=== PATIENT | female | born 1970 | race Caucasian/White ===

== ENCOUNTER 2017-04-02 16:30 | Emergency (ER) | payer OTHER ==
[~2017-04-02] VITALS: Ht 121.9 cm; Wt 100.0 kg
[~2017-04-02 16:30] MED LIST: FLUT1SPR5 EACH NARE; GABA300C5 PO
[2017-04-02 16:32] VITALS: BP 144/80; PULSE 90; RESP 14; TEMP 98.2; O2SAT 100
[2017-04-02] MEDS ORDERED: SODIUM CHLOR 0.9% 1000 ML INJ 1,000 ML IV SCH (18:59)
[2017-04-02] MEDS ORDERED: SODIUM CHLORIDE 0.9% FLUSH 10 ML FLUSH IV FLUSH PRN (19:00)
--- NOTE | 2017-04-02 19:02 | PD ---
HPI Chief Complaint: GI Complaint Time Seen by Provider: 18:21 Travel History International Travel<30 days: No Contact w/Intl Traveler<30days: No Traveled to known affect area: No History of Present Illness HPI 47-year-old female presents to emergency Department with complaint of hematuria since 2014, blood in her stool on and off for the past 5 months, and bloody emesis times one week. Says she threw up one week ago once, one time this weekend, and one time this morning. Reports blood in her stool started again about a week ago. Denies lightheadedness or dizziness. Reports fever one week ago. Reports feeling exhausted. Reports right lower quadrant abdominal pain that has been on and off since 2014 with constant pain past 5 months. Denies dysuria. Reports urinary hesitancy. Denies anticoagulant therapy. Denies chest pain or shortness of breath. Says abdominal pain is worse after eating and before bowel movement. Abdominal pain decreases after bowel movement. Rates the pain 10/10. Has not taken any medications or tried any treatments to alleviate her symptoms. No known relieving factors. History of a heart murmur and depression. Allergies to Depakote. The urologist in regards to these complaints and was told she has a blood clot hanging from her bladder. Has also seen data technician and was told that she has the "healthiest vagina he's ever seen." Has seen GI and they wanted to do a colonoscopy and an endoscopy and since the patient couldn't pay for the endoscopy they said they would not do the colonoscopy. History of total hysterectomy and cholecystectomy. Her primary care providers Lena james. She has no other medical complaints. No other modifying factors or associated signs and symptoms. PFSH Past Medical History Blood Disorders: No Bipolar Disorder: Yes Anxiety: Yes Depression: Yes Heart Rhythm Problems: Yes (heart murmur) Cancer: Yes (cervical) Cardiac Catheterization: No Cardiovascular Problems: Yes (murmur ) High Cholesterol: Yes Chemotherapy: No Congestive Heart Failure: No Diabetes: No Diminished Hearing: No Endocrine: No Genitourinary: No Hepatitis: No Hiatal Hernia: No Immune Disorder: No Musculoskeletal: Yes ( degenerative disc disease l4-5) Neurologic: Yes (anxiety, stress, seizures nothing in 5 years) Psychiatric: Yes (bi-polar) Reproductive: Yes Respiratory: No Immunizations Current: Yes Radiation Therapy: No Seizures: Yes (NO SEIZURE IN 5 YRS. ) Thyroid Disease: No Tetanus Vaccination: < 5 Years Influenza Vaccination: Yes ?: Not Menopausal: Yes : 3 Para: 3 Miscarriage: 0 : 0 Ovarian Cysts: Yes Tubal Ligation: Yes (1993) Past Surgical History Abdominal Surgery: Yes (lap ortiz) AICD: No Arteriovenous Shunt: No Cardiac Surgery: No Cholecystectomy: Yes Coronary Artery Bypass Graft: No Ear Surgery: No Endocrine Surgery: No Eye Surgery: No Genitourinary Surgery: No Gynecologic Surgery: Yes (cone bx x2 tubal) Hysterectomy: Yes Insulin Pump: No Joint Replacement: No Neurologic Surgery: No Oral Surgery: No Pacemaker: No Thoracic Surgery: No Other Surgery: Yes (CONIZATIONS 1990 1995) Social History Alcohol Use: No Tobacco Use: No Substance Use: No Allergies-Medications (Allergen,Severity, Reaction): Coded Allergies: divalproex sodium (Verified Allergy, Intermediate, rash, 04/02/17) Reported Meds & Prescriptions Reported Meds & Active Scripts Active No Active Prescriptions or Reported Medications Review of Systems Except as stated in HPI: all other systems reviewed are Neg Physical Exam Narrative GENERAL: Well-nourished, well-developed female patient, in no acute distress; afebrile, nontoxic-appearing SKIN: Warm and dry. HEAD: Atraumatic. Normocephalic. EYES: Pupils equal and round. No scleral icterus. No injection or drainage. ENT: Mucosa pink and moist. Airway patent. NECK: Trachea midline. CARDIOVASCULAR: Regular rate and rhythm. No murmur appreciated. RESPIRATORY: No accessory muscle use. Clear to auscultation. Breath sounds equal bilaterally. GASTROINTESTINAL: Abdomen soft, right lower quadrant abdominal tenderness, nondistended. Hepatic and splenic margins not palpable. Bowel sounds are active 4 quadrants. No guarding. Nonrigid. RECTAL EXAM: Exam done in the presence of a nurse. No masses or tenderness, stool is brown. Hemaprompt negative. No visualized external hemorrhoids. MUSCULOSKELETAL: No obvious deformities. No clubbing. No cyanosis. No edema. NEUROLOGICAL: Awake and alert. Oriented 3. No obvious cranial nerve deficits. Motor grossly within normal limits. Normal speech. PSYCHIATRIC: Appropriate mood and affect; insight and judgment normal. Data Data Last Documented VS Vital Signs Date Time Temp Pulse Resp B/P (MAP) Pulse Ox O2 Delivery O2 Flow Rate FiO2 04/02/17 18:01 16 11/30/17 16:32 98.2 90 144/80 (101) 100 Orders Orders Complete Blood Count With Diff (04/02/17 18:59) Comprehensive Metabolic Panel (04/02/17 18:59) Lipase (04/02/17 18:59) Prothrombin Time / Inr (Pt) (04/02/17 18:59) Act Partial Throm Time (Ptt) (04/02/17 18:59) Urinalysis - C+S If Indicated (04/02/17 18:59) Ct Abd/Pel W/O Iv Contrast (04/02/17 18:59) Iv Access Insert/Monitor (04/02/17 18:59) Ecg Monitoring (04/02/17 18:59) Oximetry (04/02/17 18:59) Sodium Chlor 0.9% 1000 Ml Inj (Ns 1000 M (04/02/17 18:59) Sodium Chloride 0.9% Flush (Ns Flush) (04/02/17 19:00) Ketorolac Inj (Toradol Inj) (04/02/17 19:15) Ondansetron Inj (Zofran Inj) (04/02/17 19:15) Labs Laboratory Tests Test 04/02/17 19:30 04/02/17 19:40 Urine Color YELLOW Urine Turbidity HAZY Urine pH 5.0 Urine Specific [place] 1.018 Urine Protein NEG mg/dL Urine Glucose (UA) NEG mg/dL Urine Ketones NEG mg/dL Urine Occult Blood NEG Urine Nitrite NEG Urine Bilirubin NEG Urine Urobilinogen LESS THAN 2.0 MG/DL Urine Leukocyte Esterase NEG Urine RBC 1 /hpf Urine WBC 1 /hpf Urine Squamous Epithelial Cells 5 /hpf Urine Uric Acid Crystals OCC /hpf Urine Bacteria RARE /hpf Urine Mucus FEW /lpf Microscopic Urinalysis Comment CULT NOT INDICATED White Blood Count 8.8 TH/MM3 Red Blood Count 4.74 MIL/MM3 Hemoglobin 13.8 GM/DL Hematocrit 42.0 % Mean Corpuscular Volume 88.6 FL Mean Corpuscular Hemoglobin 29.1 PG Mean Corpuscular Hemoglobin Concent 32.8 % Red Cell Distribution Width 13.7 % Platelet Count 232 TH/MM3 Mean Platelet Volume 8.3 FL Neutrophils (%) (Auto) 51.8 % Lymphocytes (%) (Auto) 37.2 % Monocytes (%) (Auto) 9.7 % Eosinophils (%) (Auto) 0.8 % Basophils (%) (Auto) 0.5 % Neutrophils # (Auto) 4.6 TH/MM3 Lymphocytes # (Auto) 3.3 TH/MM3 Monocytes # (Auto) 0.9 TH/MM3 Eosinophils # (Auto) 0.1 TH/MM3 Basophils # (Auto) 0.0 TH/MM3 CBC Comment DIFF FINAL Differential Comment Prothrombin Time 10.0 SEC Prothromb Time International Ratio 1.0 RATIO Activated Partial Thromboplast Time 25.3 SEC Blood Urea Nitrogen 12 MG/DL Creatinine 0.80 MG/DL Random Glucose 87 MG/DL Total Protein 7.4 GM/DL Albumin 3.8 GM/DL Calcium Level 8.7 MG/DL Alkaline Phosphatase 71 U/L Aspartate Amino Transf (AST/SGOT) 24 U/L Alanine Aminotransferase (ALT/SGPT) 37 U/L Total Bilirubin 0.3 MG/DL Sodium Level 140 MEQ/L Potassium Level 3.6 MEQ/L Chloride Level 107 MEQ/L Carbon Dioxide Level 26.2 MEQ/L Anion Gap 7 MEQ/L Estimat Glomerular Filtration Rate 78 ML/MIN Lipase 114 U/L [facility] Medical Decision Making Medical Screen Exam Complete: Yes Emergency Medical Condition: Yes Medical Record Reviewed: Yes Differential Diagnosis Peptic ulcer disease, GI bleed, urinary tract infection, gastritis, appendicitis , kidney stones Narrative Course 47-year-old female with ongoing complaint of abdominal pain, hematuria, blood in stool, and bloody emesis. Patient is afebrile and nontoxic-appearing. Hemaprompt negative. Patient's urine on the counter in the room is clear yellow without hematuria noted. CBC, CMP, lipase, urinalysis, CT abdomen/pelvis , normal saline bolus, Toradol, Zofran ordered. 2015: CBC unremarkable. 2052: CMP unremarkable. lipase 114. Coags unremarkable. Urinalysis without signs of infection. CT abdomen/pelvis pending. 2100: Dr. Ovalles assumed patient care at this time. See her note for final patient disposition. Scripts No Active Prescriptions or Reported Meds Carolyn Fatima Apr 02, 2017 19:02
[2017-04-02] MEDS ORDERED: KETOROLAC TROMETHAMINE 30 MG/ML (IVP) VIAL IV PUSH ONE (19:15)
[2017-04-02] MEDS ORDERED: ONDANSETRON HCL 4 MG/2 ML VIAL IV PUSH ONE (19:15)
[2017-04-02 20:16] LABS: AUTOMATED NEUTROPHIL # 4.6 TH/MM3 (1.8-7.7); BASOPHIL % 0.5 % (0.0-2.0); EOSINOPHIL # 0.1 TH/MM3 (0-0.4); EOSINOPHIL % 0.8 % (0.0-4.0); HEMO FLAGS DIFF FINAL; LYMPH % 37.2 % (9.0-44.0); LYMPHOCYTE # 3.3 TH/MM3 (1.0-4.8); MEAN CELL VOLUME 88.6 FL (80.0-100.0); MEAN CORPUSCULAR HEMOGLOBIN 29.1 PG (27.0-34.0); MEAN CORPUSCULAR HGB CONC 32.8 % (32.0-36.0); MONO % 9.7 % (0.0-8.0); NEUT % 51.8 % (16.0-70.0); PLATELET COUNT 232 TH/MM3 (150-450); RED BLOOD COUNT 4.74 MIL/MM3 (4.00-5.30); RED CELL DISTRIBUTION WIDTH 13.7 % (11.6-17.2); WHITE BLOOD COUNT 8.8 TH/MM3 (4.0-11.0)
[2017-04-02 20:27] LABS: APTT (PATIENT) 25.3 SEC (24.3-30.1)
[2017-04-02 20:38] LABS: BACTERIA, URINE RARE /hpf; BLOOD, URINE NEG (NEG); COMMENT (UR) CULT NOT INDICATED; CULTURE IF INDICATED CULT NOT INDICATED; GLUCOSE,URINE NEG (NEG); KETONE, URINE NEG (NEG); MUCUS URINE FEW /lpf (OCC); NITRITE,URINE NEG (NEG); SQUAMOUS EPITHELIAL CELL URINE 5 /hpf (0-5); URIC ACID CRYSTALS, URINE OCC /hpf; URINE COLOR YELLOW (YELLW/STRAW)
[2017-04-02 20:47] LABS: ANION GAP 7 MEQ/L (5-15); AST (GOT) 24 U/L (15-37); BICARBONATE 26.2 MEQ/L (21.0-32.0); BLOOD UREA NITROGEN 12 MG/DL (7-18); CHLORIDE 107 MEQ/L (98-107); GLOMERULAR FILTRATION RATE 78 ML/MIN (>89); POTASSIUM 3.6 MEQ/L (3.5-5.1); SODIUM (NA) 140 MEQ/L (136-145)
[2017-04-02 20:48] LABS: ALT (GPT) 37 U/L (10-53)
[2017-04-02 20:50] LABS: ALKALINE PHOSPHATASE 71 U/L (45-117); TOTAL BILIRUBIN ADULT 0.3 MG/DL (0.2-1.0)
--- NOTE | 2017-04-02 21:36 | RADRPT ---
EXAM DATE/TIME: 04/02/2017 20:11 [facility] COMPARISON: CT ABDOMEN & PELVIS W CONTRAST, February 16, 2014, 18:38. INDICATIONS : Abdominal pain for 2 years. ORAL CONTRAST: No oral contrast ingested. RADIATION DOSE: 18.99 CTDIvol (mGy) MEDICAL HISTORY : Cervical cancer. Ovarian cysts. SURGICAL HISTORY : Cholecystectomy. Hysterectomy. ENCOUNTER: Initial ACUITY: >1 yr PAIN SCALE: 10/10 LOCATION: Abdomen. TECHNIQUE: Volumetric scanning of the abdomen and pelvis was performed. Using automated exposure control and ad justment of the mA and/or kV according to patient size, radiation dose was kept as low as reasonably achievable to obtain optimal diagnostic quality images. DICOM format image data is available electro nically for review and comparison. FINDINGS: LOWER LUNGS: The visualized lower lungs are clear. LIVER: Homogeneous density without lesion. There is no dilation of the biliary tree. The patient is status post cholecystectomy. SPLEEN: Normal size without lesion. PANCREAS: Within normal limits. KIDNEYS: Normal in size and shape. There is no mass, stone, or hydronephrosis. ADRENAL GLANDS: Within normal limits. VASCULAR: There is no aortic aneurysm. BOWEL/MESENTERY: The stomach, small bowel, and colon demonstrate no acute abnormality. There is no free intraperitone al air or fluid. ABDOMINAL WALL: Within normal limits. RETROPERITONEUM: There is no lymphadenopathy. BLADDER: No wall thickening or mass. REPRODUCTIVE: There is a 2.7 cm low density mass at the left adnexa likely related to a left ovarian cystic process . The patient is status post hysterectomy. INGUINAL: There is no lymphadenopathy or hernia. MUSCULOSKELETAL: There is degenerative change of the lower lumbar spine. CONCLUSION: 1. No acute abnormality is seen. 2. 2.7 cm low-density mass the left adnexa likely related to a left ovarian cystic process. The patie nt's left ovary appeared more prominent on the prior exam. Donnie Arroyo MD on April 02, 2017 at 21:30 Board Certified Radiologist. This report was verified electronically.
--- NOTE | 2017-04-02 23:12 | PD ---
Physical Exam Date Seen by Provider: Apr 02, 2017 Data Data Last Documented VS Vital Signs Date Time Temp Pulse Resp B/P (MAP) Pulse Ox O2 Delivery O2 Flow Rate FiO2 04/02/17 18:01 16 04/02/17 16:32 98.2 90 144/80 (101) 100 Orders Orders Complete Blood Count With Diff (04/02/17 18:59) Comprehensive Metabolic Panel (04/02/17 18:59) Lipase (04/02/17 18:59) Prothrombin Time / Inr (Pt) (04/02/17 18:59) Act Partial Throm Time (Ptt) (04/02/17 18:59) Urinalysis - C+S If Indicated (04/02/17 18:59) Ct Abd/Pel W/O Iv Contrast (04/02/17 18:59) Iv Access Insert/Monitor (04/02/17 18:59) Ecg Monitoring (04/02/17 18:59) Oximetry (04/02/17 18:59) Sodium Chlor 0.9% 1000 Ml Inj (Ns 1000 M (04/02/17 18:59) Sodium Chloride 0.9% Flush (Ns Flush) (04/02/17 19:00) Ketorolac Inj (Toradol Inj) (04/02/17 19:15) Ondansetron Inj (Zofran Inj) (04/02/17 19:15) Labs Laboratory Tests Test 04/02/17 19:30 04/02/17 19:40 Urine Color YELLOW Urine Turbidity HAZY Urine pH 5.0 Urine Specific [place] 1.018 Urine Protein NEG mg/dL Urine Glucose (UA) NEG mg/dL Urine Ketones NEG mg/dL Urine Occult Blood NEG Urine Nitrite NEG Urine Bilirubin NEG Urine Urobilinogen LESS THAN 2.0 MG/DL Urine Leukocyte Esterase NEG Urine RBC 1 /hpf Urine WBC 1 /hpf Urine Squamous Epithelial Cells 5 /hpf Urine Uric Acid Crystals OCC /hpf Urine Bacteria RARE /hpf Urine Mucus FEW /lpf Microscopic Urinalysis Comment CULT NOT INDICATED White Blood Count 8.8 TH/MM3 Red Blood Count 4.74 MIL/MM3 Hemoglobin 13.8 GM/DL Hematocrit 42.0 % Mean Corpuscular Volume 88.6 FL Mean Corpuscular Hemoglobin 29.1 PG Mean Corpuscular Hemoglobin Concent 32.8 % Red Cell Distribution Width 13.7 % Platelet Count 232 TH/MM3 Mean Platelet Volume 8.3 FL Neutrophils (%) (Auto) 51.8 % Lymphocytes (%) (Auto) 37.2 % Monocytes (%) (Auto) 9.7 % Eosinophils (%) (Auto) 0.8 % Basophils (%) (Auto) 0.5 % Neutrophils # (Auto) 4.6 TH/MM3 Lymphocytes # (Auto) 3.3 TH/MM3 Monocytes # (Auto) 0.9 TH/MM3 Eosinophils # (Auto) 0.1 TH/MM3 Basophils # (Auto) 0.0 TH/MM3 CBC Comment DIFF FINAL Differential Comment Prothrombin Time 10.0 SEC Prothromb Time International Ratio 1.0 RATIO Activated Partial Thromboplast Time 25.3 SEC Blood Urea Nitrogen 12 MG/DL Creatinine 0.80 MG/DL Random Glucose 87 MG/DL Total Protein 7.4 GM/DL Albumin 3.8 GM/DL Calcium Level 8.7 MG/DL Alkaline Phosphatase 71 U/L Aspartate Amino Transf (AST/SGOT) 24 U/L Alanine Aminotransferase (ALT/SGPT) 37 U/L Total Bilirubin 0.3 MG/DL Sodium Level 140 MEQ/L Potassium Level 3.6 MEQ/L Chloride Level 107 MEQ/L Carbon Dioxide Level 26.2 MEQ/L Anion Gap 7 MEQ/L Estimat Glomerular Filtration Rate 78 ML/MIN Lipase 114 U/L MDM Medical Record Reviewed: Yes Supervised Visit with MEHUL: Yes Narrative Course I, Dr. Ovalles, have reviewed the advance practice practitioner's documentation and am in agreement, met with the patient face to face, made the diagnosis, and the medical decision making was done by me. *My assessment and Findings: Laboratory Tests Test 04/02/17 19:30 04/02/17 19:40 Urine Color YELLOW (YELLW/STRAW) Urine Turbidity HAZY (CLEAR) Urine pH 5.0 (5.0-8.5) Urine Specific [place] 1.018 (1.002-1.035) Urine Protein NEG mg/dL (NEG-TRACE) Urine Glucose (UA) NEG mg/dL (NEG) Urine Ketones NEG mg/dL (NEG) Urine Occult Blood NEG (NEG) Urine Nitrite NEG (NEG) Urine Bilirubin NEG (NEG) Urine Urobilinogen LESS THAN 2.0 MG/DL (LESS Urine Leukocyte Esterase NEG (NEG) Urine RBC 1 /hpf (0-3) Urine WBC 1 /hpf (0-5) Urine Squamous Epithelial Cells 5 /hpf (0-5) Urine Uric Acid Crystals OCC /hpf (NONE) Urine Bacteria RARE /hpf (NONE) Urine Mucus FEW /lpf (OCC) Microscopic Urinalysis Comment CULT NOT INDICATED White Blood Count 8.8 TH/MM3 (4.0-11.0) Red Blood Count 4.74 MIL/MM3 (4.00-5.30) Hemoglobin 13.8 GM/DL (11.6-15.3) Hematocrit 42.0 % (35.0-46.0) Mean Corpuscular Volume 88.6 FL (80.0-100.0) Mean Corpuscular Hemoglobin 29.1 PG (27.0-34.0) Mean Corpuscular Hemoglobin Concent 32.8 % (32.0-36.0) Red Cell Distribution Width 13.7 % (11.6-17.2) Platelet Count 232 TH/MM3 (150-450) Mean Platelet Volume 8.3 FL (7.0-11.0) Neutrophils (%) (Auto) 51.8 % (16.0-70.0) Lymphocytes (%) (Auto) 37.2 % (9.0-44.0) Monocytes (%) (Auto) 9.7 % (0.0-8.0) Eosinophils (%) (Auto) 0.8 % (0.0-4.0) Basophils (%) (Auto) 0.5 % (0.0-2.0) Neutrophils # (Auto) 4.6 TH/MM3 (1.8-7.7) Lymphocytes # (Auto) 3.3 TH/MM3 (1.0-4.8) Monocytes # (Auto) 0.9 TH/MM3 (0-0.9) Eosinophils # (Auto) 0.1 TH/MM3 (0-0.4) Basophils # (Auto) 0.0 TH/MM3 (0-0.2) CBC Comment DIFF FINAL Differential Comment Prothrombin Time 10.0 SEC (9.8-11.6) Prothromb Time International Ratio 1.0 RATIO Activated Partial Thromboplast Time 25.3 SEC (24.3-30.1) Blood Urea Nitrogen 12 MG/DL (7-18) Creatinine 0.80 MG/DL (0.50-1.00) Random Glucose 87 MG/DL (74-106) Total Protein 7.4 GM/DL (6.4-8.2) Albumin 3.8 GM/DL (3.4-5.0) Calcium Level 8.7 MG/DL (8.5-10.1) Alkaline Phosphatase 71 U/L (45-117) Aspartate Amino Transf (AST/SGOT) 24 U/L (15-37) Alanine Aminotransferase (ALT/SGPT) 37 U/L (10-53) Total Bilirubin 0.3 MG/DL (0.2-1.0) Sodium Level 140 MEQ/L (136-145) Potassium Level 3.6 MEQ/L (3.5-5.1) Chloride Level 107 MEQ/L (98-107) Carbon Dioxide Level 26.2 MEQ/L (21.0-32.0) Anion Gap 7 MEQ/L (5-15) Estimat Glomerular Filtration Rate 78 ML/MIN (>89) Lipase 114 U/L (73-393) Patient is a 47-year-old female who presents to emergency room with multiple complaints. Reports that she has had hematuria since 2014, today, there is one reports on her urine, no evidence of gross blood in her UA. Patient reports that she has noted blood in her stools, patient's rectal exam showed heme- negative stools. Patient's hemoglobin is stable at 13.8. Patient also with right lower quadrant pain which has been intermittent since 2014 but constant within the past 5 months. That she is in need of a colonoscopy but has not been able to get one. CT of abdomen and pelvis: with no acute abnormality, she does have a 2.7cm low density mass in the left adnexa related to left ovarian cystic process. Patient with rlq pain and not llq pain. I did review all incidental findings with patient in detail, a copy of her CAT scan report was given to her discharge. Patient at this time is stable for discharge understands need for outpatient workup with senior abap developer. She does admit that she did not like her original senior abap developer as he had "bad bedside manners," reports that she tried to follow up with his partner but couldn't find a bus to bring her there. She will try harder to get a follow up appointment for this colonscopy. Patient is stable at this time for discharge as all of her complaints appear to be chronic in nature. Signs and symptoms of when to return to the emergency room was reviewed patient in detail. Diagnosis Primary Impression: Abdominal pain Additional Impression: ovarian cyst Patient Instructions: General Instructions Additional Instruction: Please provide patient with a copy of their lab work and studies at discharge* * Please follow up with your primary care doctor in 2-3 days Return to the ER if symptoms worsen or progress Return to the ER as needed Please follow up with your senior abap developer as soon as possible Scripts No Active Prescriptions or Reported Meds Disposition: 01 DISCHARGE HOME Condition: Stable Zeenat Ovalles DO Apr 02, 2017 23:12
[2017-04-03 00:38] VITALS: BP 136/73; TEMP 98.3
== END 2017-04-03 00:38 | disposition home or self-care (01) ==
LOC: NEPD 16:30
DX: R10.31 Right lower quadrant pain (principal); N83.202 Unspecified ovarian cyst, left side; K92.1 Melena; K92.0 Hematemesis; R53.83 Other fatigue; R39.11 Hesitancy of micturition; E78.00 Pure hypercholesterolemia, unspecified; Z86.79 Personal history of other diseases of the circulatory system; Z86.59 Personal history of other mental and behavioral disorders; Z85.41 Personal history of malignant neoplasm of cervix uteri; Z87.39 Personal history of other diseases of the musculoskeletal system and connective tissue; Z86.69 Personal history of other diseases of the nervous system and sense organs
CPT/HCPCS: 74176; 80053; 81001; 83690; 85025; 85610; 85730; 96361; 96374; 96375; 99285; J1885; J2405; J7030

== ENCOUNTER 2017-07-27 15:17 | Emergency (ER) | payer OTHER ==
[~2017-07-27] VITALS: Ht 154.9 cm; Wt 91.2 kg
[2017-07-27 15:22] VITALS: BP 185/90; PULSE 88; RESP 16; TEMP 98.7; O2SAT 97
--- NOTE | 2017-07-27 16:12 | PD ---
HPI Chief Complaint: Syncope/Near-Syncope Time Seen by Provider: 16:08 Travel History International Travel<30 days: No Contact w/Intl Traveler<30days: No Traveled to known affect area: No History of Present Illness HPI Patient is concerned that she might have passed out. This is very much in question. Patient relates that while she was napping before going to work that her son was having trouble waking her up. Once she woke up she felt "funny". Patient said that upon awakening she felt like she was short of breath shows disoriented and was very nervous. This all resolved with time, but she decided to come in and get evaluated instead of going to work. Patient states that her last seizure was over 5 years ago. And that she continues to be compliant with her medication. Patient states symptoms are all resolved now, no aggravating factors. No associated factors such as fever, rash, headache, neck pain, neck stiffness, chest pain, back pain, abdominal pain, nausea, vomiting, diarrhea, cough, runny nose or sore throat. Allergy to Depakote Past medical history significant for seizure, syncope, heart murmur, cholecystectomy bipolar cervical conization PFSH Past Medical History Hx Anticoagulant Therapy: No Blood Disorders: No Bipolar Disorder: Yes Anxiety: Yes Depression: Yes Heart Rhythm Problems: Yes (heart murmur) Cancer: Yes (cervical) Cardiac Catheterization: No Cardiovascular Problems: Yes (murmur ) High Cholesterol: Yes Chemotherapy: No Congestive Heart Failure: No Diabetes: No Diminished Hearing: No Endocrine: No Genitourinary: No Hepatitis: No Hiatal Hernia: No Immune Disorder: No Musculoskeletal: Yes ( degenerative disc disease l4-5) Neurologic: Yes (anxiety, stress, seizures nothing in 5 years) Psychiatric: Yes (bi-polar) Reproductive: Yes Respiratory: No Immunizations Current: Yes Radiation Therapy: No Seizures: Yes (NO SEIZURE IN 5 YRS. ) Thyroid Disease: No ?: Not Menopausal: Yes : 3 Para: 3 Miscarriage: 0 : 0 Ovarian Cysts: Yes Tubal Ligation: Yes (1993) Past Surgical History Abdominal Surgery: Yes (lap ortiz) AICD: No Arteriovenous Shunt: No Cardiac Surgery: No Cholecystectomy: Yes Coronary Artery Bypass Graft: No Ear Surgery: No Endocrine Surgery: No Eye Surgery: No Genitourinary Surgery: No Gynecologic Surgery: Yes (cone bx x2 tubal) Hysterectomy: Yes Insulin Pump: No Joint Replacement: No Neurologic Surgery: No Oral Surgery: No Pacemaker: No Thoracic Surgery: No Other Surgery: Yes (CONIZATIONS 1990 1995) Social History Alcohol Use: No Tobacco Use: No Substance Use: No Allergies-Medications (Allergen,Severity, Reaction): Coded Allergies: divalproex sodium (Verified Allergy, Intermediate, rash, 07/27/17) Reported Meds & Prescriptions Reported Meds & Active Scripts Active Reported Gabapentin 100 Mg Cap Unknown Dose PO TID Review of Systems General / Constitutional: No: Fever Eyes: No: Visual changes HENT: No: Headaches Cardiovascular: No: Chest Pain or Discomfort Respiratory: No: Shortness of Breath Gastrointestinal: No: Abdominal Pain Genitourinary: No: Dysuria Musculoskeletal: No: Pain Skin: No Rash Neurologic: Positive: Syncope Psychiatric: No: Depression Endocrine: No: Polydipsia Hematologic/Lymphatic: No: Easy Bruising Physical Exam Narrative GENERAL: SKIN: Warm and dry. HEAD: Atraumatic. Normocephalic. EYES: Pupils equal and round. No scleral icterus. No injection or drainage. ENT: No nasal bleeding or discharge. Mucous membranes pink and moist. NECK: Trachea midline. No JVD. CARDIOVASCULAR: Regular rate and rhythm. RESPIRATORY: No accessory muscle use. Clear to auscultation. Breath sounds equal bilaterally. GASTROINTESTINAL: Abdomen soft, non-tender, nondistended. MUSCULOSKELETAL: Extremities without clubbing, cyanosis, or edema. No obvious deformities. NEUROLOGICAL: Awake and alert. No obvious cranial nerve deficits. Motor grossly within normal limits. Five out of 5 muscle strength in the arms and legs. Normal speech. PSYCHIATRIC: Appropriate mood and affect; insight and judgment normal. Data Data Last Documented VS Vital Signs Date Time Temp Pulse Resp B/P (MAP) Pulse Ox O2 Delivery O2 Flow Rate FiO2 07/27/17 19:07 78 16 119/68 (85) 99 Room Air 07/27/17 15:22 98.7 Orders Orders Electrocardiogram (07/27/17 16:13) Complete Blood Count With Diff (07/27/17 16:13) Comprehensive Metabolic Panel (07/27/17 16:13) B-Type Natriuretic Peptide (07/27/17 16:13) Ckmb (Isoenzyme) Profile (07/27/17 16:13) Troponin I (07/27/17 16:13) Act Partial Throm Time (Ptt) (07/27/17 16:13) Prothrombin Time / Inr (Pt) (07/27/17 16:13) Urinalysis - C+S If Indicated (07/27/17 16:13) Chest, Single Ap (07/27/17 16:13) Ct Brain W/O Iv Contrast(Rout) (07/27/17 16:13) Blood Glucose (07/27/17 16:13) Ecg Monitoring (07/27/17 16:13) Iv Access Insert/Monitor (07/27/17 16:13) Oximetry (07/27/17 16:13) Sodium Chloride 0.9% Flush (Ns Flush) (07/27/17 16:15) Orthostatic Vital Signs (07/27/17 16:13) Ct Pulmonary Angiogram (07/27/17 16:13) CKMB (07/27/17 16:25) CKMB% (07/27/17 16:25) Iohexol 350 Inj (Omnipaque 350 Inj) (07/27/17 18:18) Labs Laboratory Tests Test 07/27/17 16:25 07/27/17 17:00 07/27/17 19:02 White Blood Count 6.6 TH/MM3 Red Blood Count 4.57 MIL/MM3 Hemoglobin 12.9 GM/DL Hematocrit 39.2 % Mean Corpuscular Volume 85.8 FL Mean Corpuscular Hemoglobin 28.2 PG Mean Corpuscular Hemoglobin Concent 32.8 % Red Cell Distribution Width 13.2 % Platelet Count 251 TH/MM3 Mean Platelet Volume 8.7 FL Neutrophils (%) (Auto) 57.0 % Lymphocytes (%) (Auto) 32.9 % Monocytes (%) (Auto) 8.4 % Eosinophils (%) (Auto) 1.0 % Basophils (%) (Auto) 0.7 % Neutrophils # (Auto) 3.7 TH/MM3 Lymphocytes # (Auto) 2.2 TH/MM3 Monocytes # (Auto) 0.6 TH/MM3 Eosinophils # (Auto) 0.1 TH/MM3 Basophils # (Auto) 0.0 TH/MM3 CBC Comment DIFF FINAL Differential Comment Prothrombin Time 10.1 SEC Prothromb Time International Ratio 1.0 RATIO Activated Partial Thromboplast Time 26.1 SEC Blood Urea Nitrogen 9 MG/DL Creatinine 0.66 MG/DL Random Glucose 104 MG/DL Total Protein 7.1 GM/DL Albumin 3.5 GM/DL Calcium Level 8.4 MG/DL Alkaline Phosphatase 68 U/L Aspartate Amino Transf (AST/SGOT) 15 U/L Alanine Aminotransferase (ALT/SGPT) 22 U/L Total Bilirubin 0.3 MG/DL Sodium Level 141 MEQ/L Potassium Level 3.6 MEQ/L Chloride Level 110 MEQ/L Carbon Dioxide Level 24.1 MEQ/L Anion Gap 7 MEQ/L Estimat Glomerular Filtration Rate 97 ML/MIN Total Creatine Kinase 178 U/L Creatine Kinase MB 1.2 NG/ML Troponin I LESS THAN 0.02 NG/ML B-Type Natriuretic Peptide 23 PG/ML MDM Medical Decision Making Medical Screen Exam Complete: Yes Emergency Medical Condition: Yes Medical Record Reviewed: Yes Interpretation(s) EKG shows normal sinus rhythm, 76 bpm, normal intervals, no STEMI pattern noted. Differential Diagnosis Syncope versus non-STEMI versus anemia versus dehydration versus arrhythmia versus pulmonary embolus versus pneumonia Narrative Course Of note Accu-Chek is 105 Orthostatics reviewed and negative CBC shows no evidence of leukocytosis, anemia, normal platelet count, no left shift. Coagulation profile is within normal limits Electrolytes are all within normal limits, normal kidney and liver functions. First set of cardiac enzymes negative Head CT read by the radiologist as normal examination for a patient of this age Chest x-ray read by radiologist as no acute disease. Chest CT read by radiologist as normal examination for a patient of this age. Specifically noting no pleural effusion, pericardial effusion, no PE, no pneumonia. Diagnosis Primary Impression: Medical clearance Disposition: 01 DISCHARGE HOME Condition: Stable Kaz Tavarez MD Jul 27, 2017 16:12
[2017-07-27] MEDS ORDERED: SODIUM CHLORIDE 0.9% FLUSH 10 ML FLUSH IVF PRN (16:15)
[2017-07-27 16:20] VITALS: O2SAT 97
--- NOTE | 2017-07-27 16:32 | RADRPT ---
EXAM DATE/TIME: 07/27/2017 16:16 [facility] COMPARISON: CHEST SINGLE AP, August 29, 2015, 15:52. INDICATIONS : Shortness of breath. MEDICAL HISTORY : None. SURGICAL HISTORY : None. ENCOUNTER: Initial ACUITY: 1 day PAIN SCORE: 0/10 LOCATION: Bilateral chest FINDINGS: A single view of the chest demonstrates the lungs to be symmetrically aerated without evidence of mas s, infiltrate or effusion. The cardiomediastinal contours are unremarkable. Osseous structures are intact. CONCLUSION: No acute disease. Sung Coles MD on July 27, 2017 at 16:29 Board Certified Radiologist. This report was verified electronically.
[2017-07-27] MEDS ORDERED: GABA100C4 PO (17:15)
[2017-07-27 17:20] LABS: AUTOMATED NEUTROPHIL # 3.7 TH/MM3 (1.8-7.7); BASOPHIL % 0.7 % (0.0-2.0); EOSINOPHIL # 0.1 TH/MM3 (0-0.4); HEMATOCRIT 39.2 % (35.0-46.0); HEMOGLOBIN 12.9 GM/DL (11.6-15.3); LYMPH % 32.9 % (9.0-44.0); LYMPHOCYTE # 2.2 TH/MM3 (1.0-4.8); MEAN CELL VOLUME 85.8 FL (80.0-100.0); MEAN CORPUSCULAR HEMOGLOBIN 28.2 PG (27.0-34.0); MEAN CORPUSCULAR HGB CONC 32.8 % (32.0-36.0); MEAN PLATELET VOLUME 8.7 FL (7.0-11.0); MONO % 8.4 % (0.0-8.0); MONOCYTE # 0.6 TH/MM3 (0-0.9); PLATELET COUNT 251 TH/MM3 (150-450); RED BLOOD COUNT 4.57 MIL/MM3 (4.00-5.30); RED CELL DISTRIBUTION WIDTH 13.2 % (11.6-17.2); WHITE BLOOD COUNT 6.6 TH/MM3 (4.0-11.0)
[2017-07-27 17:21] LABS: CHLORIDE 110 MEQ/L (98-107); SODIUM (NA) 141 MEQ/L (136-145)
[2017-07-27 17:24] VITALS: BP_SYST 118; BP_SYST 124; BP_SYST 126; BP_DIAS 65; BP_DIAS 69; BP_DIAS 70; RESP 18
[2017-07-27 17:25] LABS: ALBUMIN 3.5 GM/DL (3.4-5.0); BICARBONATE 24.1 MEQ/L (21.0-32.0); BLOOD UREA NITROGEN 9 MG/DL (7-18); CALCIUM 8.4 MG/DL (8.5-10.1); GLUCOSE,RANDOM 104 MG/DL (74-106)
[2017-07-27 17:26] LABS: PROTHROMBIN TIME - PATIENT 10.1 SEC (9.8-11.6)
[2017-07-27 17:28] LABS: ALT (GPT) 22 U/L (10-53); AST (GOT) 15 U/L (15-37); CREATININE 0.66 MG/DL (0.50-1.00); GLOMERULAR FILTRATION RATE 97 ML/MIN (>89)
[2017-07-27 17:30] LABS: TOTAL BILIRUBIN ADULT 0.3 MG/DL (0.2-1.0); TOTAL PROTEIN 7.1 GM/DL (6.4-8.2)
[2017-07-27 17:31] LABS: ALKALINE PHOSPHATASE 68 U/L (45-117)
[2017-07-27 17:33] LABS: TROPONIN I LESS THAN 0.02 NG/ML (0.02-0.05)
[2017-07-27] MEDS ORDERED: IOHEXOL 350 MG/ML 10 ML VIAL (for RAD DIAG) IVCONTRAST ONE (18:18)
--- NOTE | 2017-07-27 18:40 | RADRPT ---
EXAM DATE/TIME: 07/27/2017 18:14 [facility] COMPARISON: No previous studies available for comparison. INDICATIONS : Near syncopal episode. Evaluate for pulmonary embolism. IV CONTRAST: 65 cc Omnipaque 350 (iohexol) IV RADIATION DOSE: 19.32 CTDIvol (mGy) MEDICAL HISTORY : Cardiovascular disease. Seizures. Cervical cancer. SURGICAL HISTORY : Cholecystectomy. Tubal ligation.Hysterectomy. ENCOUNTER: Initial ACUITY: 1 day PAIN SCALE: 0/10 LOCATION: chest TECHNIQUE: Volumetric scanning of the chest was performed using a pulmonary embolism protocol MIP images were re constructed. Using automated exposure control and adjustment of the mA and/or kV according to patien t size, radiation dose was kept as low as reasonably achievable to obtain optimal diagnostic quality images. DICOM format image data is available electronically for review and comparison. Follow-up recommendations for detected pulmonary nodules are based at a minimum on nodule size and pa tient risk factors according to Fleischner Society Guidelines. FINDINGS: PULMONARY ARTERIES: No filling defects are seen in the pulmonary arteries through the segmental level. LUNGS: There is no consolidation or pneumothorax . No concerning pulmonary nodule is visualized. PLEURAE: There is no pleural thickening or pleural effusion. MEDIASTINUM: There is good visualization of the great vessels of the middle mediastinum. No evidence of mediastin al or hilar adenopathy/mass. MUSCULOSKELETAL: Within normal limits for patient age. MISCELLANEOUS: The visualized upper abdominal organs demonstrate no acute abnormality. CONCLUSION: Normal examination for a patient of this age. Chino Manzano MD on July 27, 2017 at 18:36 Board Certified Radiologist. This report was verified electronically.
--- NOTE | 2017-07-27 18:42 | RADRPT ---
EXAM DATE/TIME: 07/27/2017 18:10 [facility] COMPARISON: No previous studies available for comparison. INDICATIONS : Dizziness. Syncope. RADIATION DOSE: 62.78 CTDIvol (mGy) MEDICAL HISTORY : Cardiovascular disease. Seizures. Cervical cancer. SURGICAL HISTORY : Cholecystectomy. Tubal ligation.Hysterectomy. ENCOUNTER: Initial ACUITY: 1 day PAIN SCALE: 4/10 LOCATION: cranial TECHNIQUE: Multiple contiguous axial images were obtained of the head. Using automated exposure control and adj ustment of the mA and/or kV according to patient size, radiation dose was kept as low as reasonably a chievable to obtain optimal diagnostic quality images. DICOM format image data is available electro nically for review and comparison. FINDINGS: CEREBRUM: The ventricles are normal for age. No evidence of midline shift, mass lesion, hemorrhage or acute in farction. No extra-axial fluid collections are seen. POSTERIOR FOSSA: The cerebellum and brainstem are intact. The 4th ventricle is midline. The cerebellopontine angle i s unremarkable. EXTRACRANIAL: The visualized portion of the orbits is intact. SKULL: The calvaria is intact. No evidence of skull fracture. CONCLUSION: Normal examination for a patient of this age. Chino Manzano MD on July 27, 2017 at 18:38 Board Certified Radiologist. This report was verified electronically.
[2017-07-27 19:07] VITALS: BP 119/68; PULSE 78; RESP 16; O2SAT 99
[2017-07-27 19:42] LABS: BILIRUBIN, URINE NEG (NEG); BLOOD, URINE NEG (NEG); GLUCOSE,URINE NEG (NEG); KETONE, URINE NEG (NEG); NITRITE,URINE NEG (NEG); URINE COLOR YELLOW (YELLW/STRAW); URINE LEUKOCYTE ESTERASE NEG (NEG)
[2017-07-27 20:03] LABS: RBC, URINE 0-3 /hpf (0-3); SQUAMOUS EPITHELIAL CELL URINE 0-5 /hpf (0-5)
[2017-07-27 20:40] VITALS: BP 106/66
--- NOTE | 2017-07-28 15:41 | EKG ---
Date Performed: 07/27/2017 Time Performed: 16:24:32 PTAGE: 47 years EKG: Sinus rhythm NORMAL ECG Since the PREVIOUS TRACING , no significant change noted PREVIOUS TRACIN03/14/2013 14.17 DOCTOR: Catrachito Sanz Interpretating Date/Time 07/28/2017 15:38:51
== END 2017-07-27 20:46 | disposition home or self-care (01) ==
LOC: PHED 15:17
DX: R55 Syncope and collapse (principal); R06.02 Shortness of breath; R41.0 Disorientation, unspecified; R45.0 Nervousness; E78.00 Pure hypercholesterolemia, unspecified; F31.9 Bipolar disorder, unspecified; F41.9 Anxiety disorder, unspecified; Z85.41 Personal history of malignant neoplasm of cervix uteri
CPT/HCPCS: 70450; 71045; 71275; 80053; 81001; 82550; 82552; 83880; 84484; 85025; 85610; 85730; 93005; 99285; Q9967